=== PATIENT | male | born 1985 | race Caucasian/White ===

== ENCOUNTER 2018-02-21 08:24 | Emergency (ER) | payer MEDICAID, SELFPAY ==
--- NOTE | 2018-02-21 08:32 | DI.RAD_ITS ---
SYMPTOM/DIAGNOSIS: ? FOREIGN BODY LEFT FOOT: Comparison is made with 08/18/17. No fracture or radiopaque foreign body is seen. IMPRESSION: Negative left foot.
--- NOTE | 2018-02-21 08:33 | W.ED.GENAD ---
Discharge Plan Disposition Patient Disposition: HOME Condition: Good Discharge Details Chief Complaint: Orthopedic Clinical Impression: Plantar wart Primary Care Provider: Marita Perry ED Provider: Fam Chavira Home Meds and New Rx's Prescriptions: No Action methylphenidate HCl 10 MG tablet 20 mg PO DAILY RF: 0 naproxen 500 MG tablet 500 mg PO Q12H Qty: 20 RF: 0 Discharge Instructions Instructions: Plantar Wart (ED), Cryotherapy Wart Removal (GEN) Additional Instructions: Please follow-up immediately with your primary care provider for cryotherapy on your wart. If you notice any worsening of your symptoms, or any new symptoms such as vomiting, diarrhea, fever, chills, shortness of breath, chest pain, numbness, weakness, or fainting , please return immediately to the emergency department for reevaluation. Please follow up with your primary care provider as soon as possible for reassessment and reevaluation. As always, it was a pleasure participating in your medical care today. Referrals: Marita Perry [Primary Care Provider] - Medical Decision Making This is a 32-year-old male who presents with left foot pain for the last year and a half. Signs and symptoms appear consistent with a plantar wart. I was unable to shave a significant amount of the structure off with bedside scalpel. Patient does have a modifying factor of stepping on a kaylin nail over a year and a half ago, he is worried that there may be a retained foreign body. I feel this is less likely, however for patient relief and per patient request we will get an x-ray to rule out a foreign body. Discussed with the patient the importance of close follow-up with his primary care provider for freezing of wart, and the patient understands. X-ray results have returned and there is no evidence of retained foreign body per Dr. Aggarwal. With signs and symptoms clinically consistent with a plantar wart will do feel that the patient be safely discharged home with close follow-up with his PCP freezing cauterization. I have extensively reviewed the treatment plan and discharge instructions with the patient. I have addressed all patient concerns at this time. The patient was made aware of what symptoms to monitor for that would warrant a return to the emergency department. Discussed the plan with the patient, they demonstrate verbal understanding and agreement with our assessment and plan at this time. HPI General Date/Time Provider Initiated Documentation: 02/21/18 08:27. HPI Narrative: This is a 32-year-old male with no past medical history who presents with left foot pain for the last year and a half. The patient states that he year and a half ago he stepped on a kaylin nail, is worried there might be a foreign body still stuck in there. Describes the pain as a general achy sensation, worse when he steps on it. Pain is located on the ball of his foot on his left foot. He denies any other radiation of the pain, any fevers or chills, any redness, or any discharge. He has no other complaints at this time. Immunizations are up-to-date including tetanus per the patient. Patient has no other complaints or modifying factors at this time. No previous surgeries, no IV or illicit drug use. Related Data Home Medications Medication Instructions Recorded Confirmed methylphenidate HCl 20 mg PO DAILY 05/27/14 08/18/17 naproxen 500 mg PO Q12H #20 tablet 04/17/17 08/18/17 Previous Rx's Medication Instructions Recorded naproxen 500 mg PO Q12H #20 tablet 04/17/17 Allergies Allergy/AdvReac Type Severity Reaction Status Date / Time No Known Allergies Allergy Unverified 08/23/17 10:35 Review of Systems Review of Systems All systems reviewed & are unremarkable except as noted in HPI and below PFSH Social History Smoking/Tobacco Use Status: Current every day Exam Narrative Exam Narrative: 1.Const: Well-nourished, Well-developed, appearing stated age 2.Eyes: PERRL, no conjunctival injection, and symmetrical lids. 3.ENT: Atraumatic external nose and ears. Moist MM. Neck: Symmetric, trachea midline, No thyromegaly. 4.CVS: +S1/S2, No murmurs or gallops. Peripheral pulses 2+ and equal in all extremities. Brisk capillary refill in all extremities. 5.RESP: Unlabored respiratory effort. Clear to auscultation bilaterally. No wheezes rales or rhonchi 6.GI: Soft, Nontender/Nondistended, No hepatosplenomegaly. No guarding or rebound. 7.MSK: Normocephalic/Atraumatic, Extremities w/o deformity or ttp No cyanosis or clubbing, Normal movement of all extremities. Sensation intact in both feet, dorsalis pedis and posterior tibial pulse +2 bilaterally, capillary refill brisk, two-point discrimination intact peer 8.Skin: Warm, Dry. The patient's left foot at the ball of his foot demonstrates signs and symptoms consistent with a plantar wart lesion. No evidence of clear foreign body. Central wartlike structure surrounded by notable callus. Pain worse with palpation. Flat and soft but slightly concave against the skin of the foot. Certainly not convex. 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 Sensation grossly intact, no focal neurologic deficits. 10.Psych: (AAO) x3. Appropriate mood and affect
[2018-02-21 08:34] VITALS: BP 122/71; PULSE 61; RESP 15; O2SAT 97
[2018-02-21 09:00] VITALS: BP 122/71; PULSE 61; RESP 15; TEMP 36.7; O2SAT 97
== END 2018-02-21 08:58 | disposition home or self-care (01) ==
LOC: ER 08:39
PROVIDERS: Emergency Provider Student in an Organized Health Care Education/Training Program; PCP Nurse Practitioner Family
DX: B07.0 Plantar wart (principal)
CPT/HCPCS: 99283; 73630; 99282

== ENCOUNTER 2020-03-24 12:21 | Outpatient (REF) | payer MEDICAID, SELFPAY ==
[2020-03-24 12:59] LABS: HCT 44.1 % (40.0-50.0); HGB 14.7 g/dL (13.5-17.5); MCH 27.4 pg (27.0-33.0); MCHC 33.3 % (32.0-36.0); MCV 82.3 fL (80-95); MPV 10.3 fL (8.0-11.0); Platelet Count 301 10^3/uL (130-400); RBC 5.36 10^6/uL (4.36-5.78); RDW 12.5 % (11.8-14.1); RDW-SD 37.8 fL; WBC 7.59 10^3/uL (4.4-10.8)
[2020-03-24 15:41] LABS: ESR 6 mm/hr (<or=15)
== END 2020-03-24 12:22 | disposition home or self-care (01) ==
LOC: NCHCN 12:21
PROVIDERS: PCP Nurse Practitioner Family; Visit Provider Internal Medicine
DX: K92.1 Melena (principal)
CPT/HCPCS: 85027; 85652